=== PATIENT | male | born 1965 ===

== ENCOUNTER 2017-10-05 16:09 | Emergency (ER) | payer SELFPAY ==
[2017-10-05 16:41] VITALS: BP 146/84; PULSE 76; RESP 20; TEMP 98.5
[2017-10-05] MEDS ORDERED: Bacitracin Ointment 30 GM TUBE TOP STA (16:42)
--- NOTE | 2017-10-05 16:54 | C.PDOC ---
History Of Present Illness 51 year old male brought to ED by ambulance for public intoxication. As per EMS , pt was found at an [employer] in [place] slumped over and smoking "funny smelling cigarette". Pt admits to binge drinking this month. Contusion was noted to the chin area, when asked patient is unable to recall the accident. Otherwise, denies chest pain, shortness of breath, abdominal pain, v/d, or any active physical complaints at this time. Strong alcohol odor noted, pt is easily arousable to verbal stimuli. Time Seen by Provider: 10/05/17 16:13 Chief Complaint (Nursing): Substance Abuse History Per: EMS History/Exam Limitations: no limitations Onset/Duration Of Symptoms: Gradual Current Symptoms Are (Timing): Still Present Suicide/Self Injury Attempted (Context): None Modifying Factor(s): Alcohol Severity: None Pain Scale Rating Of: 0 Associated Symptoms: denies: Suicidal Thoughts, Suicidal Plan Involuntary Hold By: None Recent travel outside of the [place]: No Additional History Per: EMS Past Medical History Reviewed: Historical Data, Nursing Documentation, Vital Signs Vital Signs: Last Vital Signs Temp 98.5 F 10/05/17 17:15 Pulse 76 10/05/17 17:15 Resp 20 10/05/17 17:15 BP 146/84 10/05/17 17:15 Pulse Ox 96 10/05/17 17:47 Family History: States: Unknown Family Hx - Social History Hx Alcohol Use: Yes Hx Substance Use: No - Immunization History Hx Tetanus Toxoid Vaccination: No Hx Influenza Vaccination: No Hx Pneumococcal Vaccination: No Review Of Systems Review Of Systems: ROS cannot be obtained secondary to pt's inabilty to answer questions. (due to intoxication) Physical Exam - Physical Exam Appears: Non-toxic, No Acute Distress, Unkempt Skin: Warm, Dry, No Rash, No Ecchymosis Head: Normacephalic, Laceration (2cm superficial laceration to chin. No wound draining, no wound FB noted, No palpable deformity or edema.) Eye(s): bilateral: PERRL (slugish reactive to light B/L) Nose: No Deformity Oral Mucosa: Moist, No Drooling, No Trismus, Other (EtOH on breath) Tongue: Normal Appearing, No Laceration Neck: Trachea Midline, No Midline Cervical Tenderness, No Paracervical Tenderness, No Step Off Deformity, Supple Chest: No Deformity, No Tenderness, No Ecchymosis, No Subcutaneous Emphysema Cardiovascular: Rhythm Regular, No Murmur, No JVD Respiratory: No Decreased Breath Sounds, No Accessory Muscle Use, No Rales, No Rhonchi, No Wheezing Gastrointestinal/Abdominal: Soft, No Tenderness, No Distention, No Guarding Extremity: Normal ROM, No Tenderness, No Pedal Edema, No Deformity, No Swelling Neurological/Psych: Other (Intoxicated) ED Course And Treatment O2 Sat by Pulse Oximetry: 96 (RA) Pulse Ox Interpretation: Normal Progress Note: Head CT, Maxillofacial CT ordered and reviewed. At 17:00, as per RN, pt was not found. Pt was caled in all areas of ED without answer. Eloped from ED prior medical evaluation. Disposition - Disposition Disposition: ELOPEMENT - ER ONLY Disposition Time: 17:44 Condition: GOOD Forms: [facility] (Ukrainian) - Clinical Impression Clinical Impression: Alcohol intoxication, Head injury - PA / [employer] / Resident Statement MD/DO has reviewed & agrees with the documentation as recorded. - Scribe Statement The provider has reviewed the documentation as recorded by the Scribe Winnie Chung All medical record entries made by the Renateibgiuseppe were at my direction and personally dictated by me. I have reviewed the chart and agree that the record accurately reflects my personal performance of the history, physical exam, medical decision making, and the department course for this patient. I have also personally directed, reviewed, and agree with the discharge instructions and disposition.
[2017-10-05 17:46] VITALS: O2SAT 96
== END 2017-10-05 17:24 | disposition left against medical advice (07) ==
LOC: C.ER 16:09
DX: F10.129 Alcohol abuse with intoxication, unspecified (principal); Y90.9 Presence of alcohol in blood, level not specified; S01.81XA Laceration without foreign body of other part of head, initial encounter; X58.XXXA Exposure to other specified factors, initial encounter

== ENCOUNTER 2017-11-01 16:22 | Emergency (ER) | payer SELFPAY ==
[2017-11-01 17:14] VITALS: BP 130/84; PULSE 79; RESP 20; TEMP 97.2; O2SAT 96
== END 2017-11-01 17:11 | disposition left against medical advice (07) ==
LOC: C.ER 16:22
DX: Z02.89 Encounter for other administrative examinations (principal); F19.10 Other psychoactive substance abuse, uncomplicated